=== PATIENT | male | born 1940 | race African-American/Black ===

== ENCOUNTER 2016-09-20 08:52 | Outpatient (CLI) | payer MEDICARE | END 2016-09-20 08:53 | LOC: NAVSJIPCSP 08:52 | PROVIDERS: ATTEND Internal Medicine | DX: E78.5 Hyperlipidemia, unspecified (principal) | CPT/HCPCS: 36415; 80061 ==

== ENCOUNTER 2017-01-24 08:43 | Outpatient (CLI) | payer MEDICARE ==
[2017-01-24 12:31] LABS: #Basophils 0.1 thou/uL (0.0-0.2); #Eosinphils 0.4 thou/uL (0.0-0.7); #Lymphocytes 2.5 thou/uL (1.20-3.40); #Monocytes 0.5 thou/uL (0.11-0.59); #Neutrophils 1.9 thou/uL (1.40-6.50); %Basophils 1.8 % (0.0-1.0); %Eosinophils 7.9 % (0.0-10.0); %Lymphocytes 45.5 % (21.0-51.0); %Monocytes 9.9 % (0.0-10.0); %Neutrophils 34.9 % (42.0-75.0); Hemoglobin 13.1 g/dL (14.0-18.0); Mean Corpuscular HGB CONC 31.7 g/dL (32.0-36.0); Mean Corpuscular Hemoglobin 30.2 pg (27.0-31.0); Mean Corpuscular Volume 95.1 fl (80.0-94.0); Mean Platelet Volume 7.7 fL (7.4-10.4); Platelet Count 200 thou/uL (130-400); RBC Distribution Width 12.3 % (11.5-14.5); Red Blood Cell (RBC) Count 4.33 mill/uL (4.70-6.10); White Blood Cell (WBC) Count 5.4 thou/uL (4.8-10.8)
[2017-01-24 12:48] LABS: Cardiac Risk 3.4 (Less than 4.5)
== END 2017-01-24 08:44 | disposition home or self-care (01) ==
LOC: NAVSJIPCSP 08:43
PROVIDERS: ATTEND Internal Medicine
DX: E78.5 Hyperlipidemia, unspecified (principal); D64.9 Anemia, unspecified; Z79.899 Other long term (current) drug therapy
CPT/HCPCS: 36415; 80061; 82728; 83540; 83550; 85025

== ENCOUNTER 2022-07-20 09:44 | Outpatient (CLI) | payer MEDICARE | END 2022-07-20 09:45 | disposition home or self-care (01) | LOC: NAV RAD 09:44 | PROVIDERS: ATTEND Family Medicine | DX: M25.561 Pain in right knee (principal); M17.11 Unilateral primary osteoarthritis, right knee ==